=== PATIENT | male | born 1990 | race Caucasian/White ===

== ENCOUNTER → 2020-05-03 | Outpatient (CLI) | payer OTHER ==
[~2020-05-03] MED LIST: PREDNISONE20 MG PO
== END ==
LOC: COL.RAD 09:38
DX: R05 Cough (principal)

== ENCOUNTER 2020-05-06 14:17 | Emergency (ER) | payer OTHER ==
[~2020-05-06] VITALS: Ht 175.3 cm; Wt 109.1 kg
[2020-05-06 14:30] VITALS: TEMP 97.6
[2020-05-06] MEDS ORDERED: PREDNISONE20 MG PO (15:29)
[2020-05-06 15:36] LABS: COLLECTION METHOD CLEAN CATCH
[2020-05-06 15:53] LABS: MUCOUS Present /lpf; PH 5 (5-8); SQUAMOUS EPITHELIAL 0-2 /hpf; URINE APPEARANCE Hazy; URINE BACTERIA None Seen /hpf; URINE BILIRUBIN Negative (NEGATIVE); URINE BLOOD 3+ (NEGATIVE); URINE COLOR Amber; URINE GLUCOSE Negative (NEGATIVE); URINE KETONE Negative (NEGATIVE); URINE LEUKOCYTE ESTERASE Negative (NEGATIVE); URINE NITRATE Negative (NEGATIVE); URINE PROTEIN(semi-quant) 1+ (NEGATIVE); URINE RBC >50 /hpf
[2020-05-06 17:20] VITALS: BP 116/71; PULSE 76
== END 2020-05-06 17:21 | disposition home or self-care (01) ==
LOC: COL.ER 14:17
PROVIDERS: Emergency Medicine
DX: R10.9 Unspecified abdominal pain (principal); U07.1 COVID-19; Z79.52 Long term (current) use of systemic steroids